=== PATIENT | male | born 1945 | race Caucasian/White ===

== ENCOUNTER 2024-09-02 14:33 | Inpatient (IN) | payer OTHER ==
[2024-09-02] MEDS ORDERED: DEXTROSE 50%-WATER 25 GM/50 ML DISP.SYRIN ONE (14:57)
[2024-09-02 15:09] LABS: VENOUS BASE EXCESS 5.7 mmol/L (-2-2); VENOUS O2 SATURATION 48.2 % (70-80); VENOUS PH 7.265 (7.310-7.410)
[2024-09-02 15:10] LABS: VENOUS PCO2 78.4 mmHg (38-52)
[2024-09-02 15:15] LABS: BASO % 0.1 % (0-2.0); EOS % 2.6 % (0-4.5); HEMATOCRIT 32.1 % (35.4-49); HEMOGLOBIN 10.3 GM/dL (11.7-16.9); LYMPH % 11.9 % (8-40); MCH 26.9 pg (25.7-33.7); MCHC 32.2 g/dl (32.0-35.9); MEAN CELL VOLUME 83.4 fl (80-96); NEUT % 76.4 % (42.8-82.8); PLATELET COUNT 144 10^3/uL (134-434); RBC 3.85 M/mm3 (4.00-5.60); RDW 16.4 % (11.9-15.9)
[2024-09-02 15:20] VITALS: BMI 26.6
[2024-09-02 15:22] LABS: INR 1.04 (0.83-1.09); PROTHROMBIN TIME (PATIENT) 11.7 SEC (9.7-13.0)
[2024-09-02] MEDS ORDERED: ALBUTEROL SO4 2.5/IPRATROPIUM 0.5 INH SOL 3 ML VIAL.NEB. NEB ONE (15:24)
[2024-09-02 15:25] LABS: ACTIVATED PTT 28.2 SECONDS (25.2-36.5)
[2024-09-02 15:28] LABS: URINE APPEARANCE CLEAR; URINE BILIRUBIN NEGATIVE (NEGATIVE); URINE COLOR YELLOW; URINE GLUCOSE (UA) NEGATIVE (NEGATIVE); URINE KETONE TRACE (NEGATIVE); URINE LEUK ESTERASE NEGATIVE (NEGATIVE); URINE NITRITE NEGATIVE (NEGATIVE); URINE PROTEIN NEGATIVE (NEGATIVE); URINE UROBILINOGEN 0.2 mg/dL (0.2-1.0)
[2024-09-02] MEDS: DEXTROSE 50%-WATER - 25 GM/50 ML VIAL IVPUSH ONE (15:30)
[2024-09-02] MEDS: methylPREDNISolone NA SUCC 125 MG/2 ML VIAL IVPUSH ONE (15:30)
[2024-09-02] MEDS: ALBUTEROL SO4 2.5/IPRATROPIUM 0.5 INH SOL 3 ML VIAL.NEB. NEB SCH (15:30)
[2024-09-02 15:35] LABS: POTASSIUM 4.3 mmol/L (3.5-5.1)
[2024-09-02 15:37] LABS: ALBUMIN 3.5 g/dl (3.4-5.0); BLOOD UREA NITROGEN 90.9 mg/dL (7-18); CALCIUM 8.6 mg/dL (8.5-10.1)
[2024-09-02 15:41] LABS: CREATININE 4.7 mg/dL (0.55-1.3)
[2024-09-02 15:42] LABS: BILIRUBIN,TOTAL 0.3 mg/dL (0.2-1); TOT PROT 6.6 g/dl (6.4-8.2)
[2024-09-02] MEDS: PIPERACILLIN/TAZOB 4.5 GM 4.5 GM in DEXTROSE 5%-WATER 100 ML IVPB ONE (16:39)
[2024-09-02] MEDS ORDERED: VANCOMYCIN/WATER 1250 MG 1,250 MG/250 ML BAG IVPB ONE (16:40)
[2024-09-02] MEDS: VANCOMYCIN 1,000 MG in DEXTROSE 5%-WATER - 250 ML IVPB ONE (16:52)
[2024-09-02 17:21] LABS: VENOUS BASE EXCESS 4.7 mmol/L (-2-2); VENOUS O2 SATURATION 67.7 % (70-80); VENOUS PH 7.277 (7.310-7.410)
[2024-09-02 17:25] LABS: VENOUS PCO2 72.4 mmHg (38-52)
[2024-09-02] MEDS ORDERED: MAGNESIUM SULFATE IN WATER 2 GM/50 ML IVPB IVPB ONE (17:25)
[2024-09-02] MEDS: LACTATED RINGERS SOLUTION 1000 ML INFUS.BAG IV ONE (17:25)
[2024-09-02] MEDS: MAGNESIUM SULFATE IN WATER 2 GM/50 ML IVPB IVPB ONE (17:25)
[2024-09-02] MEDS: SODIUM CHLORIDE 0.9% 500 ML INFUS.BAG IV ONE ×2 (18:47→18:53)
[2024-09-02 20:25] LABS: ARTERIAL BLD GAS O2 SATURATION 98.3 % (95-98); ARTERIAL BLOOD GAS BASE EXCESS 1.9 mmol/L (-2-2); ARTERIAL BLOOD GAS PO2 123.7 mmHg (80-100); ARTERIAL BLOOD GAS pH 7.355 (7.350-7.450)
[2024-09-02] MEDS ORDERED: INSULIN ASPART SLIDING SCALE (NOVOLOG) 1 VIAL SQ SCH (22:00)
[2024-09-02] MEDS ORDERED: ROSUVASTATIN CA 5 MG TABLET ONE (22:05)
[2024-09-02] MEDS ORDERED: HEPARIN NA (PORCINE) 5,000 UNITS/ML 1ML VIAL ONE (22:06)
[2024-09-02] MEDS: HEPARIN NA (PORCINE) 5,000 UNITS/ML 1ML VIAL SQ SCH (22:29)
[2024-09-02] MEDS: CARVEDILOL 3.125 MG TABLET (FP) PO SCH (22:29)
[2024-09-02] MEDS: ROSUVASTATIN CA 10 MG TABLET PO SCH (22:29)
[2024-09-02] MEDS: LIDOCAINE PATCH REMOVAL MC SCH (22:29)
[2024-09-02] MEDS: MONTELUKAST NA 10 MG TABLET PO SCH (22:30)
[2024-09-03] MEDS: BUDESONIDE/FORMETEROL FUMARATE 160/4.5 mcg INHALER IH SCH (00:08)
[2024-09-03] MEDS: SODIUM CHLORIDE 1,000 ML IV SCH ×2 (00:09→18:02)
[2024-09-03 06:18] LABS: HEMATOCRIT 32.3 % (35.4-49); HEMOGLOBIN 10.5 GM/dL (11.7-16.9); MCH 27.5 pg (25.7-33.7); MCHC 32.6 g/dl (32.0-35.9); MEAN CELL VOLUME 84.4 fl (80-96); MEAN PLT VOLUME 9.8 fl (7.5-11.1); PLATELET COUNT 119 10^3/uL (134-434); RBC 3.83 M/mm3 (4.00-5.60); RDW 15.8 % (11.9-15.9); WHITE BLOOD COUNT 8.4 K/mm3 (4.0-10.0)
[2024-09-03 09:14] LABS: ANISOCYTOSIS 0; HELMET CELLS 0; HOWELL-JOLLY BODIES 0; MACROCYTOSIS 0; OVALOCYTE 0; ROULEAU 0; SICKELED CELLS 0; TARGET CELLS 0; TEAR DROP CELLS 0; TOXIC GRANULATION 0
[2024-09-03 09:38] LABS: POTASSIUM 5.1 mmol/L (3.5-5.1)
[2024-09-03 09:41] LABS: CALCIUM 8.7 mg/dL (8.5-10.1)
[2024-09-03 09:42] LABS: ALBUMIN 3.2 g/dl (3.4-5.0); BLOOD UREA NITROGEN 84.1 mg/dL (7-18); MAGNESIUM 2.2 mg/dL (1.8-2.4)
[2024-09-03 09:44] LABS: CREATININE 3.5 mg/dL (0.55-1.3); PHOSPHOROUS 2.6 mg/dL (2.5-4.9)
[2024-09-03 09:46] LABS: BILIRUBIN,TOTAL 0.2 mg/dL (0.2-1)
[2024-09-03 09:47] LABS: TOT PROT 6.4 g/dl (6.4-8.2)
[2024-09-03] MEDS ORDERED: TAMSULOSIN HCL 0.4 MG CAP ONE (09:58)
[2024-09-03] MEDS ORDERED: LIDOCAINE 4% PATCH TP ONE (09:59)
[2024-09-03] MEDS ORDERED: TAMSULOSIN HCL 0.4 MG CAP PO SCH (10:00)
[2024-09-03] MEDS: CLOPIDOGREL BISULFATE 75 MG TABLET (FP) PO SCH (10:19)
[2024-09-03] MEDS: TAMSULOSIN HCL 0.4 MG CAP PO SCH (10:19)
[2024-09-03] MEDS: LIDOCAINE 4% PATCH TP SCH (10:19)
[2024-09-03] MEDS: ASPIRIN 81 MG CHEWABLE TABLETS PO SCH (10:19)
[2024-09-03] MEDS: TIOTROPIUM BROMIDE 2.5 MCG (SPIRIVA) RESPIMAT INHALER IH SCH (12:52)
[2024-09-03] MEDS ORDERED: HEPARIN NA (PORCINE) 5,000 UNITS/ML 1ML VIAL ONE (17:48)
[2024-09-03] MEDS ORDERED: traZODone HCL 50 MG TABLET (FP) ONE (22:09)
[2024-09-03] MEDS: methylPREDNISolone NA SUCC 40 MG/1 ML VIAL IVPUSH SCH (22:16)
[2024-09-03] MEDS: QUEtiapine FUMARATE 100 MG TABLET (FP) PO SCH (22:17)
[2024-09-03] MEDS: traZODone HCL 100 MG TABLET (FP) PO SCH (22:17)
[2024-09-04 07:43] LABS: POTASSIUM 5.2 mmol/L (3.5-5.1)
[2024-09-04 07:44] LABS: HEMATOCRIT 29.6 % (35.4-49); HEMOGLOBIN 9.7 GM/dL (11.7-16.9); MCH 27.5 pg (25.7-33.7); MCHC 32.7 g/dl (32.0-35.9); MEAN CELL VOLUME 84.3 fl (80-96); MEAN PLT VOLUME 9.9 fl (7.5-11.1); PLATELET COUNT 105 10^3/uL (134-434); RBC 3.51 M/mm3 (4.00-5.60)
[2024-09-04 07:47] LABS: ALBUMIN 3.2 g/dl (3.4-5.0); BLOOD UREA NITROGEN 65.8 mg/dL (7-18)
[2024-09-04 07:48] LABS: CALCIUM 8.5 mg/dL (8.5-10.1); MAGNESIUM 1.8 mg/dL (1.8-2.4)
[2024-09-04 07:50] LABS: CREATININE 2.3 mg/dL (0.55-1.3)
[2024-09-04 07:52] LABS: BILIRUBIN,TOTAL 0.3 mg/dL (0.2-1); TOT PROT 6.1 g/dl (6.4-8.2)
[2024-09-04 10:11] LABS: ANISOCYTOSIS 0; HELMET CELLS 0; HOWELL-JOLLY BODIES 0; MACROCYTOSIS 0; OVALOCYTE 0; ROULEAU 0; SICKELED CELLS 0; TARGET CELLS 0; TEAR DROP CELLS 0; TOXIC GRANULATION 0
[2024-09-04] MEDS: PANTOPRAZOLE SODIUM 40 MG VIAL IVPUSH SCH (11:16)
[2024-09-04] MEDS: SODIUM ZIRCONIUM CYCLOSILICATE (LOKELMA) 5 GM PACKET PO SCH (17:23)
[2024-09-04] MEDS ORDERED: traZODone HCL 50 MG TABLET (FP) ONE (21:20)
[2024-09-05 08:37] LABS: POTASSIUM 4.3 mmol/L (3.5-5.1)
[2024-09-05 08:38] LABS: CALCIUM 8.9 mg/dL (8.5-10.1)
[2024-09-05 08:39] LABS: ALBUMIN 3.3 g/dl (3.4-5.0); BLOOD UREA NITROGEN 59.8 mg/dL (7-18); MAGNESIUM 1.5 mg/dL (1.8-2.4)
[2024-09-05 08:44] LABS: BILIRUBIN,TOTAL 0.3 mg/dL (0.2-1); TOT PROT 6.2 g/dl (6.4-8.2)
[2024-09-05 08:46] LABS: PHOSPHOROUS 2.4 mg/dL (2.5-4.9)
[2024-09-05 09:04] LABS: HEMATOCRIT 32.7 % (35.4-49); HEMOGLOBIN 10.6 GM/dL (11.7-16.9); MCH 26.9 pg (25.7-33.7); MCHC 32.3 g/dl (32.0-35.9); MEAN CELL VOLUME 83.2 fl (80-96); PLATELET COUNT 103 10^3/uL (134-434); RBC 3.93 M/mm3 (4.00-5.60); RDW 15.9 % (11.9-15.9); WHITE BLOOD COUNT 6.2 K/mm3 (4.0-10.0)
[2024-09-05 09:06] LABS: HEMATOCRIT 31.9 % (35.4-49); HEMOGLOBIN 10.5 GM/dL (11.7-16.9); MCH 27.4 pg (25.7-33.7); MEAN CELL VOLUME 82.9 fl (80-96); MEAN PLT VOLUME 9.8 fl (7.5-11.1); PLATELET COUNT 102 10^3/uL (134-434); RBC 3.84 M/mm3 (4.00-5.60); RDW 15.9 % (11.9-15.9); WHITE BLOOD COUNT 6.2 K/mm3 (4.0-10.0)
[2024-09-05] MEDS: NAPH,MB-DB/K PH,MBDB POWDER PACKET PO ONE (09:25)
[2024-09-05 09:39] LABS: ANISOCYTOSIS 0; MACROCYTOSIS 0
[2024-09-05] MEDS: MAGNESIUM SULFATE IN WATER 2 GM/50 ML IVPB IVPB ONE (09:39)
[2024-09-05] MEDS: SODIUM CHLORIDE 1,000 ML IV SCH ×2 (09:40→10:51)
[2024-09-05] MEDS ORDERED: traZODone HCL 50 MG TABLET (FP) ONE (21:23)
[2024-09-06 08:11] LABS: BASO % 0.1 % (0-2.0); EOS % 0.1 % (0-4.5); HEMATOCRIT 31.7 % (35.4-49); HEMOGLOBIN 10.3 GM/dL (11.7-16.9); LYMPH % 10.3 % (8-40); MCH 27.2 pg (25.7-33.7); MCHC 32.5 g/dl (32.0-35.9); MEAN CELL VOLUME 83.8 fl (80-96); MEAN PLT VOLUME 9.9 fl (7.5-11.1); MONO % 10.6 % (3.8-10.2); NEUT % 78.9 % (42.8-82.8); PLATELET COUNT 106 10^3/uL (134-434); RBC 3.78 M/mm3 (4.00-5.60); WHITE BLOOD COUNT 7.1 K/mm3 (4.0-10.0)
[2024-09-06 08:29] LABS: POTASSIUM 4.5 mmol/L (3.5-5.1)
[2024-09-06 08:38] LABS: ALBUMIN 3.2 g/dl (3.4-5.0); BLOOD UREA NITROGEN 52.3 mg/dL (7-18); CALCIUM 8.8 mg/dL (8.5-10.1)
[2024-09-06 08:39] LABS: MAGNESIUM 1.7 mg/dL (1.8-2.4)
[2024-09-06 08:41] LABS: CREATININE 1.9 mg/dL (0.55-1.3)
[2024-09-06 08:43] LABS: BILIRUBIN,TOTAL 0.4 mg/dL (0.2-1)
[2024-09-06] MEDS: PANTOPRAZOLE 40 MG TABLET PO SCH (09:27)
[2024-09-06] MEDS: ASPIRIN COATED 81 MG TABLET.EC PO SCH (09:27)
[2024-09-06 14:20] VITALS: BP 179/75; PULSE 67; RESP 18; TEMP 99
[2024-09-06] MEDS: LISINOPRIL 10 MG TABLET PO ONE (16:15)
== END 2024-09-06 18:18 | DRG 191 ==
LOC: JER 14:33 → JERBED 18:45 → INTOOBSV 18:45 → J4W 09-03 19:42 → OBSVTOIN 09-04 09:48
PROVIDERS: ADMIT Internal Medicine; ATTEND Internal Medicine
DX: J44.1 Chronic obstructive pulmonary disease with (acute) exacerbation (principal); E87.29 Other acidosis; N17.9 Acute kidney failure, unspecified; F31.89 Other bipolar disorder; I13.0 Hypertensive heart and chronic kidney disease with heart failure and stage 1 through stage 4 chronic kidney disease, or unspecified chronic kidney disease; F25.9 Schizoaffective disorder, unspecified; E10.649 Type 1 diabetes mellitus with hypoglycemia without coma; I50.9 Heart failure, unspecified; E78.5 Hyperlipidemia, unspecified; N40.0 Benign prostatic hyperplasia without lower urinary tract symptoms; G47.00 Insomnia, unspecified; E66.9 Obesity, unspecified; Z68.39 Body mass index [BMI] 39.0-39.9, adult; I25.10 Atherosclerotic heart disease of native coronary artery without angina pectoris; E11.22 Type 2 diabetes mellitus with diabetic chronic kidney disease; N18.9 Chronic kidney disease, unspecified; Z79.4 Long term (current) use of insulin; D64.9 Anemia, unspecified; Z86.718 Personal history of other venous thrombosis and embolism
CPT/HCPCS: 0241U-QW; 36415; 36600; 70450-TC; 71045-TC-FY; 76775-TC; 80053; 81003; 82570; 82728; 82803; 82962; 83036; 83540; 83550; 83605; 83735; 83930; 83935; 84100; 84156; 84300; 84484; 85025; 85027; 85045; 85610; 85730; 86850; 86900; 86901; 87086; 93005; 93010; 93306-TC; 94660; 97116-GP; 97162-GP; 99285-25; G0378; J1644